=== PATIENT | female | born 1990 | race Caucasian/White ===

== ENCOUNTER 2022-07-04 09:38 | Outpatient (REF) | payer BC, SELFPAY ==
[2022-07-04 16:01] LABS: HCT 45.4 % (36.0-46.0); HGB 15.5 g/dL (11.2-15.7); MCH 30.4 pg (27.0-33.0); MCHC 34.1 % (32.0-36.0); MCV 89 fL (80-95); MPV 10.5 fL (8.0-11.0); Platelet Count 224 10^3/uL (130-400); RDW 12.2 % (11.7-14.6); RDW-SD 40.1 fL; WBC 6.94 10^3/uL (4.4-10.8)
[2022-07-04 16:46] LABS: Iron 123 ug/dL (50-170); Total Iron Binding Capacity 307 ug/dL (250-450); Transferrin Sat 40 % (15-50)
[2022-07-04 16:57] LABS: BUN 11 mg/dL (7-18); CREATININE 0.7 mg/dL (0.55-1.02); Calcium 9.5 mg/dL (8.5-10.1); Chloride 105 mmol/L (98-107); Estimated GFR 117.77 (mL/min/1.73m2); Ferritin 34 ng/mL (8-252); Glucose 84 mg/dL (74-106); Potassium 3.9 mmol/L (3.5-5.1); Sodium 141 mmol/L (136-145); TSH (W/Ref FT4) 2.39 uIU/mL (0.36-3.74); Vitamin B12 375 pg/mL (193-986)
[2022-07-04 18:31] LABS: Hemoglobin A1C 4.7 % (<5.7)
== END 2022-07-04 09:39 | disposition home or self-care (01) ==
LOC: NCHCN 09:38
PROVIDERS: PCP Family Medicine; Visit Provider Family Medicine
DX: Z00.00 Encounter for general adult medical examination without abnormal findings (principal); R81 Glycosuria; R25.2 Cramp and spasm; F41.9 Anxiety disorder, unspecified; K30 Functional dyspepsia
CPT/HCPCS: 80048; 85027; 82607; 82728; 83036; 83540; 83550; 83735; 84443

== ENCOUNTER 2024-01-26 09:04 | Outpatient (REF) | payer MEDICAID, SELFPAY ==
[2024-01-26 17:00] LABS: Iron 70 ug/dL (50-170); Total Iron Binding Capacity 269 ug/dL (250-450); Transferrin Sat 26 % (15-50)
[2024-01-26 17:37] LABS: Ferritin 24 ng/mL (8-252)
== END 2024-01-26 09:05 | disposition home or self-care (01) ==
LOC: NCHCN 09:04
PROVIDERS: PCP Family Medicine; Visit Provider Family Medicine
DX: G25.81 Restless legs syndrome (principal)
CPT/HCPCS: 82728; 83540; 83550